=== PATIENT | female | born 1965 | race Caucasian/White ===

== ENCOUNTER 2020-10-04 08:44 | Outpatient (CLI) | payer BC, SELFPAY ==
--- NOTE | 2020-10-04 09:03 | EST_ITS ---
Patient Info Name: Alyssa Dia Age: 55 years : 1965 Gender: Female Ht: 66 in Wt: 270 lbs BSA: 2.45 m2 HR: 74 bpm BP: 155 / 76 mmHg Heart Rhythm: Right Bundle Branch Block Exam Date: 10/04/2020 9:33 AM Exam Location: [facility] Patient Status: Outpatient Admit Date: 10/04/2020 Staff Ordering Physician: Maryjane Melgar NP Film Librarian: Imani Morales RDCS Attending Provider: Referring Physician: Ramón NUNO; Exercise Technologist: Jody Martin CT Exercise Physician: Faheem Laguna DO Exam Type: CA stress echo Study Info Indications R94.31 - Abnormal electrocardiogram ECG EKG Treadmill exercise stress echocardiogram is performed. Summary 1. 1. Negative Shyam exercise stress test for ischemic ST changes by ECG criteria. 2. 2. Reduced functional capacity, achieving 7 METs of workload. 3. 3. Baseline hypertension with hypertensive response to exercise. 4. 4. Appropriate HR response to exercise. 5. 5. Appropriate HR recovery at 1 minute post exercise. 6. 6. Negative stress echocardiogram for ischemia by wall motion analysis. 7. 7. Patient informed of the above results. Stress Echo Findings Left Ventricle Appropriate increase in LV endocardial thickening with systole. Appropriate augmentation of contractility with systole. No wall motion abnormality. Left Ventricle Normal LV systolic function, no wall motion abnormality. Protocol: Shyam Stress ECG Details Stage: REST Duration (min): 1 min : 52 sec Speed (mph): 0.0 Grade (%): 0 HR (bpm): 76 SBP (mmHg): 155 DBP (mmHg): 76 METS: --- Stage: REST Duration (min): 20 min : 23 sec Speed (mph): 0.0 Grade (%): 0 HR (bpm): --- SBP (mmHg): 155 DBP (mmHg): 76 METS: --- Stage: STAGE 1 Duration (min): 1 min : 0 sec Speed (mph): 1.7 Grade (%): 10 HR (bpm): 94 SBP (mmHg): 155 DBP (mmHg): 76 METS: --- Stage: STAGE 1 Duration (min): 2 min : 0 sec Speed (mph): 1.7 Grade (%): 10 HR (bpm): 111 SBP (mmHg): 155 DBP (mmHg): 76 METS: --- Stage: STAGE 1 Duration (min): 3 min : 0 sec Speed (mph): 1.7 Grade (%): 10 HR (bpm): 123 SBP (mmHg): 155 DBP (mmHg): 76 METS: --- Stage: STAGE 2 Duration (min): 1 min : 0 sec Speed (mph): 2.5 Grade (%): 12 HR (bpm): 133 SBP (mmHg): 173 DBP (mmHg): 80 METS: --- Stage: STAGE 2 Duration (min): 2 min : 0 sec Speed (mph): 2.5 Grade (%): 12 HR (bpm): 145 SBP (mmHg): 183 DBP (mmHg): 82 METS: --- Stage: STAGE 2 Duration (min): 2 min : 2 sec Speed (mph): 0.0 Grade (%): 0 HR (bpm): 146 SBP (mmHg): 183 DBP (mmHg): 82 METS: --- Stage: RECOVERY Duration (min): 0 min : 57 sec Speed (mph): 0.0 Grade (%): 0 HR (bpm): 134 SBP (mmHg): 183 DBP (mmHg): 82 METS: --- Stage: RECOVERY Duration (min): 1 min : 57 sec Speed (mph): 0.0 Grade (%): 0 HR (bpm): 124 SBP (mmHg): 183 DBP (mm
== END 2020-10-04 08:45 | disposition home or self-care (01) ==
PROVIDERS: PCP Family Medicine; Visit Provider Nurse Practitioner
DX: R94.31 Abnormal electrocardiogram [ECG] [EKG] (principal)
CPT/HCPCS: 93351

== ENCOUNTER 2020-10-30 13:37 | Emergency (ER) | payer BC, SELFPAY ==
[2020-10-30 14:34] VITALS: BP 142/79; PULSE 95; RESP 20; TEMP 36.6; O2SAT 98
--- NOTE | 2020-10-30 16:51 | ED.GENADULT ---
HPI - General Adult General Chief complaint: Epistaxis Stated complaint: nosebleed Time Seen by Provider: 10/30/20 13:45 Source: patient and RN notes reviewed Mode of arrival: ambulatory Limitations: no limitations History of Present Illness HPI narrative: Patient is a 55-year-old female who presents to emergency department for evaluation of epistaxis from the left nare that began today denies injury or trauma or URI symptoms apply direct pressure with no improvement presents in no distress is currently on an aspirin for knee replacement but denies other anticoagulants or antiplatelet medications Related Data Home Medications Medication Instructions Recorded Confirmed loratadine 10 mg tablet 10 mg PO DAILY 02/14/20 08/08/20 montelukast 10 mg tablet 10 mg PO DAILY 02/14/20 08/08/20 celecoxib 200 mg capsule 200 mg PO BID cap 08/08/20 08/08/20 Allergies Allergy/AdvReac Type Severity Reaction Status Date / Time No Known Allergies Allergy Verified 08/15/20 08:38 Review of Systems Review of Systems: All systems reviewed & are unremarkable except as noted in HPI and below PMFSH Past Medical History Medical History Osteoarthritis of knees, bilateral Seasonal allergies Surgical History Surgical History History of repair of anterior cruciate ligament of left knee 1993 Family History Family History Mother Family history of glaucoma Family history of arthritis Hypertension Thyroid disorder Father Carcinoma of colon Cerebrovascular accident Social History Social History Smoking packs per day: 0.25 Smoking cigarettes per day: 5.0 Smoking status: Current every day smoker Tobacco type: cigarettes Alcohol intake: never Exam Narrative: Exam Narrative: GENERAL: Well-appearing, well-nourished, and in no acute distress. HEAD: Normocephalic, atraumatic. EYES: PERRLA and EOMI. ENT: Nares clear, area along the medial aspect of the anterior nare which was cauterized which appeared to be the source of the bleeding. Mucous membranes moist. Oropharynx without tonsillar hypertrophy exudate or other lesions. CHEST: Clear to auscultation. No respiratory distress. No wheezes rales or rhonchi HEART: Regular rate and rhythm. No murmur heard. EXTREMITIES: Normal range of motion. No edema. SKIN: Warm, dry, no rash. NEURO: No focal deficits. Alert and oriented x3. PSYCH: Normal mood and affect. Course Course Emergency Course: Patient presented with epistaxis silver nitrate cautery with hemostasis will be discharged with outpatient follow-up with her ENT provided with reasons to return Vital Signs Vital signs: Vital Signs Temperature 97.8 F 10/30/20 14:34 Pulse Rate 95 10/30/20 14:34 Respiratory Rate 10/30/20 14:34 Blood Pressure 142/79 H 10/30/20 14:34 Pulse Oximetry 98 10/30/20 14:34 Temperature 97.8 F 10/30/20 14:34 Pulse Rate 95 10/30/20 14:34 Respiratory Rate 10/30/20 14:34 Blood Pressure 142/79 H 10/30/20 14:34 Pulse Oximetry 98 10/30/20 14:34 Procedures Epistaxis Control left: Epistaxis Control Date: 10/30/20 Epistaxis Control Time: 16:53 Time Out Performed: Yes Nose Prepped With: oxymetazoline Direct Inspection: yes Clots Removed by: blowing nose Cautery Used: silver nitrate Epistaxis Control Narrative: Hemostasis achieved after cautery Medical Decision Making [facility] Narrative Medical decision making narrative: ABCs and vital signs intact and stable Vital Signs Vital Signs: Vital Signs Temperature 97.8 F 10/30/20 14:34 Pulse Rate 95 10/30/20 14:34 Respiratory Rate 10/30/20 14:34 Blood Pressure 142/79 H 10/30/20 14:34 Pulse Oximetry 98 10/30/20 14:34 Temperat
== END 2020-10-30 17:18 | disposition home or self-care (01) ==
PROVIDERS: Emergency Provider Emergency Medicine; PCP Family Medicine
DX: R04.0 Epistaxis (principal); F17.210 Nicotine dependence, cigarettes, uncomplicated
CPT/HCPCS: 30901; 99282

== ENCOUNTER 2025-04-11 10:49 | Outpatient (CLI) | payer BC, SELFPAY ==
--- NOTE | ~2025-04-11 | XR_ITS ---
XR lumbar spine min 4V Indication: Lbp Comparison: None Findings: Grade 1 retrolisthesis of L2 on L3, no fracture. Severe loss of disc height at L5-S1 and L2-3. Soft tissues unremarkable Impression: No acute abnormality. Reviewed, dictated and finalized at location P. Impression: No acute abnormality.
== END 2025-04-11 10:50 | disposition home or self-care (01) ==
LOC: MICIMG 10:53
PROVIDERS: PCP Chiropractor; Visit Provider Chiropractor
DX: M43.16 Spondylolisthesis, lumbar region (principal); R29.890 Loss of height
CPT/HCPCS: 72110